=== PATIENT | female | born 1955 | race Caucasian/White ===

== ENCOUNTER 2019-12-09 17:48 | Inpatient (IN) | payer OTHER ==
[~2019-12-09] VITALS: Ht 165.1 cm; Wt 50.3 kg
[2019-12-09 17:55] VITALS: BP 157/76
[2019-12-09 18:51] LABS: ABSOLUTE NEUTROPHILS 4.4 thou/uL (1.4-8.2); BASOPHILS 0.3 % (0.0-2.0); EOSINOPHILS 0.2 % (0.0-3.0); HEMATOCRIT 36.1 % (37.0-47.0); LYMPHOCYTES 5.5 % (24.0-44.0); MCH 30.4 pg (26.0-34.0); MCHC 33.3 g/dL (28.0-37.0); MCV 91.4 fL (80.0-100.0); MONOCYTES 6.8 % (1.0-8.0); PLATELET COUNT 114 thou/uL (150-400); POLYS 87.2 % (36.0-66.0); RBC 3.95 mil/uL (4.20-5.00); WBC 5.1 thou/uL (4.0-11.0)
[2019-12-09 19:14] LABS: ANION GAP 16 mmol/L (7-16); BUN 28 mg/dL (7-18); CALCIUM 8.9 mg/dL (8.5-10.1); CHLORIDE 100 mmol/L (98-107); CO2 17 mmol/L (21-32); CREATININE 1.2 mg/dL (0.6-1.0); GLUCOSE 109 mg/dL (74-106); POTASSIUM 3.7 mmol/L (3.5-5.1); SODIUM 133 mmol/L (136-145)
[2019-12-09 19:23] LABS: ALBUMIN 3.5 g/dL (3.4-5.0); DIRECT BILIRUBIN 0.5 mg/dL (<0.1-0.2); SGOT 18 U/L (15-37); SGPT 21 U/L (30-65); TOTAL PROTEIN 8.6 g/dL (6.4-8.2); TROPONIN-I <0.06 ng/mL (<0.06)
[2019-12-09 20:53] VITALS: BP 134/82
[2019-12-09 21:14] VITALS: BP 145/56
[2019-12-09 21:15] VITALS: BP 145/56
[2019-12-09 21:31] VITALS: BP 137/67
--- NOTE | 2019-12-10 02:46 | NUR ---
PATIENT AOX4 MAKES NEEDS KNOWN. PATIENT ADMITTED FOR INFLUENZA B, PATIENT IS ON ISOLATION FOR DROPLET. PATIENT ON OXYGEN 4L. NO SHORTNESS OF AIR OR DISTRESS NOTED THIS SHIFT.PATIENT AMBULATES TO THE BATHROOM WITH STEADY GAITS. PATIENT HAS MULTIPLE TATTOS. PATIENT DISCOLARATION ON BLE. PATIENT HAS SCD ON BLE. PATIENT DENIED PAIN OR DISOMFORT. PATIENT IN BED ASLEEP AT THIS TIME BREATHING REGULAR AND UNLABOURED.
[2019-12-10 05:15] LABS: HEMATOCRIT 32.4 % (37.0-47.0); HEMOGLOBIN 10.7 gm/dL (12.0-15.0); MCH 30.7 pg (26.0-34.0); MCHC 33.1 g/dL (28.0-37.0); MCV 92.6 fL (80.0-100.0); RBC 3.5 mil/uL (4.20-5.00); RDW 13.9 % (10.5-14.5); WBC 3.6 thou/uL (4.0-11.0)
[2019-12-10 05:43] LABS: CALCIUM 8.6 mg/dL (8.5-10.1); CREATININE 1.2 mg/dL (0.6-1.0); POTASSIUM 3.6 mmol/L (3.5-5.1)
[2019-12-10 08:00] VITALS: BP 128/68
--- NOTE | 2019-12-10 08:52 | EKG ---
[facility] [place] [address] ELECTROCARDIOGRAM REPORT Name: CHRISTA CM Room #: 452- ADM IN M.R.#: [id number] Admission: 12/09/19 Attend Phys: Bassem Machuca MD Discharge: Date of : 57 Report #: [id number] THIS REPORT FOR: cc: FAM - Family physician unknown FAM - Family physician unknown Christopher Lopez MD ~ THIS REPORT FOR: //name// [facility] ED Test Date: 2019-12-09 Test Time: 18:02:07 Pat Name: CHRISTA CM Department: [facility] Gender: F Information Technology Assistant: ELENI : 1955 Requested By: Patti Rodarte Order Number: [id number] MD: Christopher Lopez Measurements Intervals [place] Rate: 109 P: 72 NE: 122 QRS: 38 QRSD: 87 T: 31 QT: 357 QTc: 481 Interpretive Statements Sinus tachycardia Borderline T wave abnormalities Borderline prolonged QT interval No previous ECG available for comparison Electronically Signed On 12-10-2019 8:51:58 MAGNETIC RESONANCE IMAGING COORDINATOR by Christopher Lopez [email or web address] <ELECTRONICALLY SIGNED> By: Christopher Lopez MD 12/10/19 0851 01 01 Christopher Lopez MD /EPI
[2019-12-10 15:00] VITALS: BP 133/57
--- NOTE | 2019-12-10 20:46 | NUR ---
A/O, cooperative; compained coughing distress, cough medicaiton ordered and administrated; daughter showed the concern of the lung condition, the primary doctor has been reported to.
--- NOTE | 2019-12-11 03:13 | NUR ---
PATIENT CONTINUES TO BE ON ISOLATION FOR INF. B.PATIENT CALM AND COOPERATIVE WITH CARE AND MEDS. PATIENT HAD INCREASED PRODUCTIVE COUGH THIS SHIFT, COUGH MEDS AND BREATHING TREATMENT GIVEN PER DR. NAVARRO. PATIENT REFUSING OXYGEN, OXYGEN SAT ARE >95%. PATIENT DENIED PAIN OR DISCOMFORT. PATIENT AMBULATES TO THE BATHROOM SLOWLY WITH A WALKER WITH STEADY GAITS. PATIENT BED PADDED ON THE RAILS D/T SEIZURE PRECAUTION. PATIENT IN BED ASLEEP AT THIS TIME BREATHING REGULAR AND UNLABOURED.
[2019-12-11 05:24] VITALS: BP 117/58
[2019-12-11 07:10] VITALS: BP 100/59
[2019-12-11 19:33] VITALS: BP 152/69
--- NOTE | 2019-12-11 20:34 | NUR ---
A/O, calm; denied pain; complained of coughing distress, coughing medication given; daughter asked to talk to the doctor tomorrow [phone].
--- NOTE | 2019-12-12 04:47 | NUR ---
Pt. rested quietly at inteervals during the night when checked on during frequent rounds. She c/o generalzed pain and po tylenol given with (see emar) with some relief voiced. Pt. does have a non-productive congested cough and prn cough med given with some relief. Head of the bed elevated. No c/o shortness of air. Up to the bathroom with assistance of one. Bed alarm is on.
[2019-12-12 07:27] LABS: HEMATOCRIT 28.9 % (37.0-47.0); HEMOGLOBIN 9.6 gm/dL (12.0-15.0); MCH 30.8 pg (26.0-34.0); MCHC 33.4 g/dL (28.0-37.0); MCV 92.4 fL (80.0-100.0); RBC 3.12 mil/uL (4.20-5.00); RDW 13.7 % (10.5-14.5); WBC 3.2 thou/uL (4.0-11.0)
[2019-12-12 07:48] LABS: CALCIUM 8.1 mg/dL (8.5-10.1); POTASSIUM 3.6 mmol/L (3.5-5.1)
[2019-12-12 07:50] VITALS: BP 133/63
--- NOTE | 2019-12-12 14:18 | NUR ---
Received awake on bed. Due medications given as prescribed, able to swallow meds w/o difficulty. On seizure precautions- padded side rails. Pt refuses to use oxygen, saturating 95% on room air. Vital signs stable. On regular diet- tolerating well; no nausea, no vomiting and no abdominal pain noted, encouraged to take her supplements. With NS at 75cc/hr, infusing well at L AC. A/W chest xray to be done. Able to ambulate using walker, gait belt and standby assist. Maintained on isolation due to influenza. Pt seen by Dr Machuca- to place pt on contact precaution as well, possible CDiff; a/w specimen to be collected. Complained of pain, due PRN pain medications given as prescribed. With coughing noted- PRN cough medication given as prescribed. To continue monitoring patient.
[2019-12-12 15:19] VITALS: BP 107/55
--- NOTE | 2019-12-12 16:37 | NUR ---
INITIAL ASSESSMENT: SW reviewed chart and spoke with nursing and attending physician. Pt was admitted from home due to hypoxia/Influenza B. Pt is in droplet isolation. SW met with pt and dtr at bedside. Introduced role of SW. Pt is alert/orientated. Pt lives at home with her dtr. Prior to admission, pt was independent with ADLs. Pt does not use any DME for ambulation. Pt moved to [place] from [place] several months ago. Pt states that she had [place] Medicaid, and family is in the process of applying or transferring to [place]-Medicaid. Pt does not currently have a PCP. SW to provide list of safety net clinics for review. Pt provided SW with [employer] insurance cards. Copy to be provided to [facility] for review. SW requested [employer] branch service representative to follow up with pt and family. Pt is on continuous O2 and was not on O2 prior to admission. Plan is for pt to return home when medically stable. SW is following to assist as needed with discharge planning.
[2019-12-12 21:19] VITALS: BP 136/68
--- NOTE | 2019-12-13 04:16 | NUR ---
Assessments completed. pt alert and oriented. ambulates to the bathroom with satndby assist. pt refuses to use a walker. pt uses iv pole with steady gait. pt has had 2 episodes of large diarrhea overnight as of this note. sample collected for c.diff and pending results. pt has a congested no productive cough. pt has a hoarse voice and can be difficult to understand sometimes. denies difficulty breathing. pt on 4lnc but will take off oxygen intermittently. pt encouraged to leave o2 on. v/s stable. isolation prec maintained. will cont to monitor
[2019-12-13 07:13] VITALS: BP 133/69
[2019-12-13 12:49] LABS: ABSOLUTE RETIC COUNT 0.0367 10^6/uL; HEMATOCRIT 27.1 % (37.0-47.0); HEMOGLOBIN 8.9 gm/dL (12.0-15.0); MCH 30.4 pg (26.0-34.0); MCV 92.3 fL (80.0-100.0); OBSERVED RETIC COUNT 1.25 % (0.6-2.6); PLATELET COUNT 101 thou/uL (150-400); RBC 2.94 mil/uL (4.20-5.00); RDW 13.3 % (10.5-14.5); WBC 2.8 thou/uL (4.0-11.0)
[2019-12-13 13:07] LABS: % SATURATION 8 % (20-39); IRON 14 ug/dL (50-170); TIBC 171 ug/dL (250-450)
[2019-12-13 13:22] LABS: ALBUMIN 2.5 g/dL (3.4-5.0); CALCIUM 7.9 mg/dL (8.5-10.1); CREATININE 0.8 mg/dL (0.6-1.0); MAGNESIUM 1.4 mg/dL (1.8-2.4); PHOSPHORUS 2.5 mg/dL (2.5-4.9); POTASSIUM 3.3 mmol/L (3.5-5.1); TOTAL PROTEIN 6.7 g/dL (6.4-8.2)
[2019-12-13 13:56] LABS: ABSOLUTE NEUTROPHILS 2.5 thou/uL (1.4-8.2); ANISOCYTOSIS 1+
[2019-12-13 14:04] LABS: FOLIC ACID 15.3 ng/mL (8.6-58.9)
[2019-12-13 15:40] VITALS: BP 143/80
[2019-12-13 19:05] VITALS: BP 157/86
--- NOTE | 2019-12-13 19:56 | NUR ---
Assumed patient care at 0715. Vital signs are stable. Patient was decreased to 1 Liter of Oxygen per Nasal Cannula; she will not keep this on. Patient has displayed mood swings, yells at staff at times then pretends to cry. Daughter called this evening, stating that her mother has Hepatitis "and several other problems." Daughter was talking in rapid speech. She would like Physician to call her. Patient has overused toilet paper (has used several rolls today). Patient has asked to have her IV "unhooked" several times today. It is running at 125cc/hr in left AC. Patient given Cough Syrup with Codeine at 1030, Acetaminophen 650mg at 1835 and Zofran at 1835. When this nurse was scanning the medications she screamed "hurry up!" ,and, "I want the good pain meds!". Report given to on-coming nurse.
--- NOTE | 2019-12-14 04:00 | NUR ---
PATIENT WAS COUGHING THIS SHIFT PRN COUGH MEDS AND BREATHING TREATMENT ADMINISTED BY RT. PATIENT ON DROPLET AND CONTACT ISOLATION. PATIENT AMBULATES TO THE BATHROOM WITH STEADY GAITS. CALLED DAUGHTER TO ASK THE MEDS PATIENTS TAKES FOR SEIZURE, PHONE NO. [phone]. SON CALLED [phone] BUT DIDNT HAVE ANY INFORMATION ON PATIENTS DX. OR MEDICATION. PATIENT SON TOLD THIS NURSE HE WILL CALL THE SISTER TO UPDATE WITH MEDICATION AND DIGNOSIS THAT THE PATIENT TAKES. PATIENT DENIED PAIN OR DISCOMFORT THIS SHIFT. PATIENT IN BED ASLEEP AT THIS TIME BREATHING REGULAR AND UNLABOURED.
[2019-12-14 07:30] VITALS: BP 125/65
[2019-12-14 12:50] LABS: ABSOLUTE NEUTROPHILS 3.3 thou/uL (1.4-8.2); BASOPHILS 21.8 % (0.0-2.0); EOSINOPHILS 0.3 % (0.0-3.0); HEMATOCRIT 28.4 % (37.0-47.0); HEMOGLOBIN 9.4 gm/dL (12.0-15.0); LYMPHOCYTES 4.4 % (24.0-44.0); MCH 30.4 pg (26.0-34.0); MCHC 32.9 g/dL (28.0-37.0); MCV 92.5 fL (80.0-100.0); MONOCYTES 4.7 % (1.0-8.0); PLATELET COUNT 110 thou/uL (150-400); POLYS 68.8 % (36.0-66.0); RBC 3.08 mil/uL (4.20-5.00); RDW 13.7 % (10.5-14.5); WBC 4.8 thou/uL (4.0-11.0)
[2019-12-14 13:01] LABS: APTT 33.8 Seconds (24.5-32.8); INR 1.2; PROTIME 12.3 Seconds (9.3-11.4)
--- NOTE | 2019-12-14 13:38 | NUR ---
CM WAS NOTIFEID THAT WE NEEDED AN ADDRESS, PHONE NUMBER, AND SS NUMBER FOR PT. CM CALLED NUMBER LISTED FOR PT'S DTR AND LEFT VOICEMAIL. CM CALLED NUMBER FOR PT'S SON AND HIS VOICEMAIL WAS FULL. PT IS REFUSING CARES AND PARTICIPATION WITH THERAPY. CM TO FOLLOW INDICATED WITH DC PLANNING.
[2019-12-14 19:38] VITALS: BP 160/68
--- NOTE | 2019-12-14 20:12 | NUR ---
Assumed patient care at 0715. Vital signs stable. Patient continues to have severe mood swings. She has been given Zofran x's 2 during this shift, as well as cough syrup with codeine twice. These medications have been effective. Patient continues to refuse to eat but has been drinking plenty of fluids. She continues to obsess and overuse toilet tissue. She became angry in the afternoon and called her daughter. Daughter was upset until it was explained to her that her mother was receiving good care and would continue to receive good care throughout her stay. Daughter reported that her mother is Bipolar, Schizophrenic and has Liver Cancer. This information was shared will rounding physicians.
[2019-12-14 21:06] LABS: HEMOGLOBIN 9.3 g/dL (11.1-15.9)
--- NOTE | 2019-12-15 02:15 | NUR ---
ASSUMED CARE OF PT AT 1900HRS. PT IS AOX3 AND LETS NEEDS BE KNOWN. FALL PRECAUTION IN PLACE. PT REPORTED PAIN AND COUGH AND PRN MEDS WERE GIVEN. PT IS NOT HAPPY WITH THE PRESCRIBED MEDS. PT WAS ABLE TO GET COMFORTABLE AND SLEEP PART OF THE SHIFT. VSS AND NO S/S OF ACUTE DISTRESS. WILL CONTINUE TO MONITOR.
--- NOTE | 2019-12-15 07:10 | HC ---
[facility] [place] [address] CONSULTATION Name: CHRISTA CM Room #: 452-P ADM IN M.R.#: [id number] Admission: 12/09/19 Attend Phys: Bassem Machuca MD Discharge: Date of : 57 Report #: [id number] THIS REPORT FOR: cc: FAM - Family physician unknown FAM - Family physician unknown Elver Vela MD ~ CC: [facility] unknown BASSEM Machuca DATE OF SERVICE: 12/14/2019 REFERRING PHYSICIAN: Dr. Bassem Machuca REASON FOR CONSULTATION: Cytopenia. HISTORY OF PRESENT ILLNESS: The patient is a 63-year-old female who saw docotors intermittently in [place]. Very poor historian, has limited family support. She does suffer poor possible history of alcohol misuse in the past. Also, hepatitis, also seizures, but the history is very unreliable at this time. The patient was admitted for cough and fever, was found to have influenza B. Her current counts show hemoglobin 8.9 with an MCV that is normal, white count of 2.8 with an ANC of 2500. Absolute retic count 0.0367 and a platelet count of 101. BUN is 8, creatinine of 0.8. Liver functions are normal with a total bilirubin of 1.0. Her albumin is 2.5. Iron 14, percent sat low at 8, TIBC 171. Chest x-ray has either interstitial lung disease or a bilateral pneumonitis. The sputum shows gram-positive cocci, so the bacteria not sure if it is real or not. The patient says she may eat red meat several times a week. Denies any blood in her urine or stool. She does not recall or does not think she has ever had an EGD or colonoscopy. MEDICATIONS: At this time in the hospital currently include budesonide 0.25 mg respiratory therapy b.i.d., ipratropium and albuterol 3 mL respiratory therapy q.i.d., metronidazole 250 mg q.i.d. acidophilus 1 packet b.i.d., codeine cough syrup 5 mL q.6 hours p.r.n., guaifenesin ER 600 mg b.i.d., albuterol q.4 hours respiratory therapy, Tylenol p.r.n., MiraLax 17 grams daily p.r.n., Zofran p.r.n. She is also on oseltamivir 75 mg b.i.d., is also on various electrolyte replacement protocols. FAMILY HISTORY: Denies any history of any low blood difficulties, but again history and function is questionable. [address] [address] CONSULTATION Name: CHRISTA CM Room #: [address] [place] [address] IN M..#: [id number] Admission: 12/09/19 Attend Phys: Bassem Machuca MD Discharge: Date of : 57 Report #: [id number] SOCIAL HISTORY: The patient is not currently working. She is from [place], is thinking of going back out there. She does not like the cold weather here. Does have family here in town. PHYSICAL EXAMINATION: GENERAL: The patient appears her stated age. VITAL SIGNS: Height is 5 feet 5 inches, which is 165 cm. Weight is 111 pounds or 50.3 kilograms. Blood pressure is 125/65, O2 sat is 94%, respirations 20, pulse 75, temperature 98.2. NEUROLOGIC: Mood, the patient is somewhat scattered on her thinking and trouble focusing and gets easily frustrated, oral, has poor dentition. LYMPHATICS: No enlarged lymph nodes in the supraclavicular, cervical, axillary or inguinal region. ABDOMEN: Has no definite organomegaly or fluid. EXTREMITIES: Without clubbing or cyanosis. There may be some trace edema. ASSESSMENT AND PLAN: 1. Pancytopenia, unknown whether she had previously low blood counts. Suspect there may be a portion of either iron deficiency, also, alcohol or liver disease related. We will ask GI to see her. We will also check ultrasound of her liver. We will check peripheral smear. We will also check coags though she has no signs of bleeding. We will check TSH. 2. History of influenza B considered antivirals. 3. Chest x-ray changes unclear at this point whether pneumonitis or interstitial lung disease, receiving inhalers. 4. History of tobacco misuse. Advised cessation. 5. Altered mood and mentation. Unknown if this is baseline or not. Defer to others. 6. Reported seizure history. Defer to others. We will follow with you. <ELECTRONICALLY SIGNED> By: Elver Vela MD 12/15/19 0710 [id number] Elver Vela MD /nt
[2019-12-15 07:25] VITALS: BP 123/63
--- NOTE | 2019-12-15 16:57 | NUR ---
IT IS ANTIPATED THAT PT MAY BE MEDICALLY STABLE TO DC HOME TOMORROW. PT DOENS'T HAVE ANY INSURANCE AND WON'T BE ABLE TO HAVE HH SERVICES. PT HAS BEEN REFUSING THERAPY SERVICES. CM CAN BE CONTACTED SHOULD ANY DC NEEDS ARISE.
[2019-12-15 19:33] VITALS: BP 140/61
--- NOTE | 2019-12-15 19:59 | NUR ---
Assumed patient care at 0715. Vital signs stable. Patient continues on Room Air. She voices no complaints of pain. Mood swings continue. Seen by Dr Pope today. To start on Risperdal. Patient's daughter Mignon called, is angry "because the Doctor wont call me back!" She has rapid speech when she calls. Patient continues to refuse to eat. She is drinking pleanty of fluids. Staff has reported"large watery stools" but has been unable to catch for Occult Blood Testing. Report given to on-coming nurse.
--- NOTE | 2019-12-16 03:21 | NUR ---
PT IS A/O .PT CARE ASSUMED WITH PT SITTING UP AT BEDSITE WATCHING TV.PT IS UP WITH STANDBY ASSIST TO THE BATHROOM.PT IV IN LAC.PT HAD X2 LOOSE STOOL DURING THE SHIFT.PT ON DROPLET PRECAUTION FOR INFLUENZA B.WILL CONRINUE TO MONITOR
[2019-12-16 06:20] LABS: HEMOGLOBIN 8.6 gm/dL (12.0-15.0); MCH 30.4 pg (26.0-34.0); MCHC 33.2 g/dL (28.0-37.0); MCV 91.6 fL (80.0-100.0); PLATELET COUNT 107 thou/uL (150-400); RBC 2.84 mil/uL (4.20-5.00); RDW 13.9 % (10.5-14.5); WBC 2.6 thou/uL (4.0-11.0)
[2019-12-16 06:32] LABS: ALBUMIN 2.5 g/dL (3.4-5.0); CALCIUM 8.6 mg/dL (8.5-10.1); CREATININE 0.9 mg/dL (0.6-1.0); POTASSIUM 3.5 mmol/L (3.5-5.1); TOTAL BILIRUBIN 0.6 mg/dL (<0.1-1.0); TOTAL PROTEIN 6.8 g/dL (6.4-8.2)
[2019-12-16 07:43] VITALS: BP 113/57
[2019-12-16 08:34] LABS: ABSOLUTE NEUTROPHILS 2.2 thou/uL (1.4-8.2); PLATELET ESTIMATE SLIGHTLY DECREASED; TOXIC GRANULATION 1+
[2019-12-16] MEDS ORDERED: SEROQUEL 100 M100 M1 PO (15:43)
[2019-12-16] MEDS ORDERED: LACTULOSE20 GM/30 M PO (15:44)
[2019-12-16] MEDS ORDERED: MUCINEX600 MG PO (15:45)
[2019-12-16] MEDS ORDERED: COMBIVENT INH (15:45)
[2019-12-16] MEDS ORDERED: ADVAIR 250-501 EACH INH (15:46)
[2019-12-16] MEDS ORDERED: PEPCID20 MG PO (15:46)
[2019-12-16 16:55] VITALS: BP 113/57
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
== END 2019-12-16 18:37 | disposition home or self-care (01) | DRG 193 ==
LOC: ER 17:48 → EROBS 20:09 → 4W 20:09
PROVIDERS: Emergency Medicine; Internal Medicine; Internal Medicine Hematology & Oncology; Nurse Practitioner Family; ADMIT Internal Medicine
DX: J10.00 Influenza due to other identified influenza virus with unspecified type of pneumonia (principal); J96.01 Acute respiratory failure with hypoxia; E43 Unspecified severe protein-calorie malnutrition; D61.818 Other pancytopenia; N17.9 Acute kidney failure, unspecified; Z68.1 Body mass index [BMI] 19.9 or less, adult; F17.210 Nicotine dependence, cigarettes, uncomplicated; E83.42 Hypomagnesemia; K72.90 Hepatic failure, unspecified without coma; E87.6 Hypokalemia; D50.9 Iron deficiency anemia, unspecified; K70.9 Alcoholic liver disease, unspecified; Z28.21 Immunization not carried out because of patient refusal; Z88.0 Allergy status to penicillin; Z88.8 Allergy status to other drugs, medicaments and biological substances; Z91.19 Patient's noncompliance with other medical treatment and regimen
CPT/HCPCS: 10040

== ENCOUNTER 2020-01-30 20:12 | Emergency (ER) | payer OTHER ==
[~2020-01-30] VITALS: Ht 165.1 cm; Wt 50.4 kg
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
[~2020-01-30 20:12] MED LIST: ADVAIR 250-501 EACH INH; COMBIVENT INH; LACTULOSE20 GM/30 M PO; MUCINEX600 MG PO; PEPCID20 MG PO; SEROQUEL 100 M100 M1 PO
[2020-01-30 21:06] LABS: HEMATOCRIT 30.6 % (37.0-47.0); HEMOGLOBIN 10.3 gm/dL (12.0-15.0); MCH 32.3 pg (26.0-34.0)
[2020-01-30 21:08] LABS: MCHC 33.6 g/dL (28.0-37.0); PLATELET COUNT 96 thou/uL (150-400); RBC 3.19 mil/uL (4.20-5.00); RDW 16.4 % (10.5-14.5)
[2020-01-30 21:10] LABS: WBC 1.8 thou/uL (4.0-11.0)
[2020-01-30 21:15] LABS: ANION GAP 10 mmol/L (7-16); BUN 15 mg/dL (7-18); CALCIUM 8.2 mg/dL (8.5-10.1); CHLORIDE 104 mmol/L (98-107); CO2 21 mmol/L (21-32); CREATININE 0.9 mg/dL (0.6-1.0); GLUCOSE 93 mg/dL (74-106); POTASSIUM 5.1 mmol/L (3.5-5.1); SODIUM 135 mmol/L (136-145)
[2020-01-30 21:25] LABS: ALBUMIN 3.3 g/dL (3.4-5.0); SGOT 41 U/L (15-37); SGPT 25 U/L (30-65); TOTAL BILIRUBIN 0.3 mg/dL (<0.1-1.0); TOTAL PROTEIN 6.9 g/dL (6.4-8.2); TROPONIN-I <0.06 ng/mL (<0.06)
[2020-01-30 21:40] LABS: URINE BILIRUBIN NEGATIVE (Negative); URINE BLOOD NEGATIVE (Negative); URINE CLARITY CLEAR; URINE COLOR YELLOW; URINE GLUCOSE-RANDOM* NEGATIVE (Negative); URINE KETONES NEGATIVE (Negative); URINE LEUKOCYTES-REFLEX NEGATIVE (Negative); URINE NITRITE-REFLEX NEGATIVE (Negative); URINE PROTEIN (DIPSTICK) NEGATIVE (Negative); URINE UROBILINOGEN 0.2 E.U./dl (0.2-1.0)
[2020-01-30 21:46] LABS: ANISOCYTOSIS 1+
[2020-01-30] MEDS ORDERED: MUCINEX FAST M PO (22:43)
[2020-01-30] MEDS ORDERED: CLEOCIN HCL150 MG PO (22:43)
[2020-01-30 23:24] VITALS: BP 147/51
--- NOTE | 2020-01-31 09:29 | EKG ---
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: [facility] : 1955 Requested By: Jimmy Gregory Order Number: [id number] MD: Darion Redmond Measurements Intervals [place] Rate: 70 P: 77 [place]: 132 QRS: 48 QRSD: 72 T: 47 QT: 398 QTc: 430 Interpretive Statements Sinus rhythm Abnormal R-wave progression, early transition Compared to ECG 12/09/2019 18:02:07 Sinus tachycardia no longer present T-wave abnormality no longer present Electronically Signed On 01-31-2020 9:27:55 CDT by Darion Redmond [email or web address] <ELECTRONICALLY SIGNED> By: Darion Redmond MD, [facility] 01/31/20926 22 22 Darion Redmond MD, [facility] /EPI
== END 2020-01-30 23:26 | disposition home or self-care (01) ==
LOC: ER 20:12
PROVIDERS: Physician Assistant
DX: S02.31XA Fracture of orbital floor, right side, initial encounter for closed fracture (principal); S01.111A Laceration without foreign body of right eyelid and periocular area, initial encounter; J11.1 Influenza due to unidentified influenza virus with other respiratory manifestations; D61.818 Other pancytopenia; F17.210 Nicotine dependence, cigarettes, uncomplicated; Z88.0 Allergy status to penicillin; Z88.8 Allergy status to other drugs, medicaments and biological substances; W01.0XXA Fall on same level from slipping, tripping and stumbling without subsequent striking against object, initial encounter; Y93.89 Activity, other specified; Y92.89 Other specified places as the place of occurrence of the external cause; Y99.8 Other external cause status

== ENCOUNTER 2020-02-05 14:59 | Emergency (ER) | payer OTHER ==
[~2020-02-05] VITALS: Ht 165.1 cm; Wt 68.0 kg
[2020-02-05 14:59] VITALS: BP 163/59
[~2020-02-05 14:59] MED LIST changes: +CLEOCIN HCL150 MG PO; +MUCINEX FAST M PO
== END 2020-02-05 15:35 | disposition home or self-care (01) ==
LOC: ER 14:59
DX: S01.111D Laceration without foreign body of right eyelid and periocular area, subsequent encounter (principal); F17.210 Nicotine dependence, cigarettes, uncomplicated; Z88.0 Allergy status to penicillin; Z88.6 Allergy status to analgesic agent; W18.39XD Other fall on same level, subsequent encounter